=== PATIENT | female | born 1935 | race Caucasian/White ===

== ENCOUNTER 2019-06-29 10:39 | Emergency (ER) | payer OTHER, MEDICAID ==
[~2019-06-29] VITALS: Ht 157.5 cm; Wt 54.4 kg
--- NOTE | 2019-06-29 10:44 | NUR ---
BIB [facility]. PATIENT IS AWAKE AND ALERT. DENIES PAIN, FEVER, COUGHING OR ANY OTHER S/S. SHE IS AMBULATORY WITH MINIMAL ASSISTANCE. PATIENT STATES SHE DOES NOT KNOW WHY EMS WAS CALLLED TODAY....
[2019-06-29] MEDS ORDERED: ALBU2.5V13 NEB (10:55)
[2019-06-29] MEDS: IV NORMAL SALINE 500 ML BAG IV ONE (11:06)
[2019-06-29 11:24] LABS: BASOPHILS # (AUTO) 0.1 K/uL (0.0-8.0); BASOPHILS % (AUTO) 0.7 % (0.0-2.0); EOSINOPHILS # (AUTO) 0.1 K/uL (0.0-0.7); EOSINOPHILS % (AUTO) 0.8 % (0.0-7.0); HEMATOCRIT 38.8 % (31.2-41.9); HEMOGLOBIN 12.8 g/dL (10.9-14.3); LYMPHOCYTES # (AUTO) 1.4 K/uL (20.0-40.0); MEAN CORPUSCULAR HGB CONC 33 g/dL (32.3-35.6); MEAN CORPUSCULAR VOLUME 90.7 fL (75.5-95.3); MONOCYTES # (AUTO) 0.6 K/uL (2.0-10.0); MONOCYTES % (AUTO) 6.6 % (0.0-11.0); NEUTROPHILS # (AUTO) 7.1 K/uL (1.8-8.9); NEUTROPHILS % (AUTO) 76.9 % (38.5-71.5); PLATELET COUNT (AUTO) 239 K/uL (179-408); RED BLOOD CELL COUNT(AUTO) 4.28 MIL/uL (3.63-4.92); WHITE BLOOD COUNT (AUTO) 9.3 K/uL (3.8-11.8)
[2019-06-29 11:35] LABS: CARBON DIOXIDE 26 mmol/L (21-32); CHLORIDE 104 mmol/L (98-107); CREATININE 0.9 mg/dL (0.6-1.3); GLUCOSE 162 mg/dL (74-106); POTASSIUM 4.4 mmol/L (3.5-5.1); UREA NITROGEN, BLOOD 24 mg/dL (7-18)
[2019-06-29 11:36] LABS: ETHANOL < 3 MG/DL (0-0)
--- NOTE | 2019-06-29 11:47 | NUR ---
AWAITING TEST RESULTS. PATIENT IS AWAKE AND ALERT WITH NO NEW COMPLAINTS. NO VISITORS FOR THIS PATIENT THUS FAR...
[2019-06-29 11:48] LABS: THYROID STIMULATING HORMONE 0.925 mIU/mL (0.358-3.740)
[2019-06-29 11:52] LABS: ACETAMINOPHEN < 2.0 ug/mL (10-30); ALANINE AMINOTRANSFERASE 16 U/L (14-59); ALKALINE PHOSPHATASE 53 U/L (50-136); ASPARTATE AMINOTRANSFERASE 21 U/L (15-37); BILIRUBIN,DIRECT 0.1 mg/dL (0.0-0.2); BILIRUBIN,TOTAL 0.6 mg/dL (0.2-1.0); TOTAL PROTEIN, SERUM 7.6 g/dL (6.4-8.2)
[2019-06-29 12:54] LABS: *BILIRUBIN,URIN NEGATIVE (NEGATIVE); *BLOOD, URINE NEGATIVE (NEGATIVE); *CLARITY,URINE CLEAR (CLEAR); *COLOR,URINE YELLOW (YELLOW); *KETONES,URINE NEGATIVE (NEGATIVE); LEUKOCYTE ESTERASE ,URINE 1+ (NEGATIVE); NITRITE, URINE NEGATIVE (NEGATIVE); UGLUCOSE NEGATIVE (NEGATIVE)
--- NOTE | 2019-06-29 12:57 | NUR ---
PATIENT INFORMED OF PENDING TRANSFER TO [facility]. REPORT GIVEN TO KACI BECKFORD AT [place].
[2019-06-29 13:00] LABS: SQUAMOUS EPITHELIAL CELL,UR FEW /HPF (NONE SEEN)
[2019-06-29 13:01] LABS: BACTERIA,URINE FEW /HPF (NONE SEEN); RBC,URINE 0-3 /HPF (0-3)
[2019-06-29 13:16] LABS: *AMPHETAMINE, URINE NEGATIVE (NEGATIVE); *BARBITURATE, URINE NEGATIVE (NEGATIVE); *CANNABINOID, URINE NEGATIVE (NEGATIVE); *COCCAINE, URINE NEGATIVE (NEGATIVE); *OPIATE, URINE NEGATIVE (NEGATIVE); *PHENCYCLIDINE SCREEN,URINE NEGATIVE (NEGATIVE)
--- NOTE | 2019-06-29 13:26 | NUR ---
AMBULANCE HERE TO TRANSPORT PATIENT TO [facility]. PATIENT IS AWAKE AND ALERT...
== END 2019-06-29 13:28 | disposition short-term general hospital (02) ==
LOC: ER 10:39
DX: R41.82 Altered mental status, unspecified (principal); E86.0 Dehydration; J45.909 Unspecified asthma, uncomplicated; Z79.899 Other long term (current) drug therapy
CPT/HCPCS: 36415; 70450; 71045; 80048; 80076; 80307; 81000; 81001; 82140; 83605; 84443; 84484; 85025; 85730; 87040; 87086; 87400; 93005; 96360; 96361; 99285; G0480 ×2; G0481; 70030-TC; A4663; J7040

== ENCOUNTER 2020-07-28 11:59 | Emergency (ER) | payer OTHER, MEDICAID ==
[~2020-07-28] VITALS: Ht 157.5 cm; Wt 47.6 kg
[~2020-07-28 11:59] MED LIST: ALBU2.5V13 NEB
[2020-07-28] MEDS ORDERED: HYDROMORPHONE 1 MG/1 ML DISP.SYRIN IV ONE (14:00)
[2020-07-28] MEDS ORDERED: HYDROMORPHONE 1 MG/1 ML DISP.SYRIN ONE ×2 (14:40→14:55)
[2020-07-28] MEDS ORDERED: HYDROMORPHONE 1 MG/1 ML DISP.SYRIN IM ONE (14:45)
--- NOTE | 2020-07-28 16:24 | NUR ---
inserted inman catheter using aseptic technique, secured catheter to left leg.
[2020-07-28] MEDS ORDERED: CEFTRIAXONE 1 G in IV DEXTROSE 5% 50 ML IV ONE (16:30)
[2020-07-28] MEDS ORDERED: AZITHROMYCIN IV 500 MG in IV DEXTROSE 5% 250 ML IV ONE (16:30)
[2020-07-28 17:09] LABS: *BILIRUBIN,URIN NEGATIVE (NEGATIVE); *CLARITY,URINE CLOUDY (CLEAR); *COLOR,URINE YELLOW (YELLOW); *KETONES,URINE NEGATIVE (NEGATIVE); *UROBILINOGEN,URINE 0.2 E.U./dl (NORMAL); LEUKOCYTE ESTERASE ,URINE 1+ (NEGATIVE); NITRITE, URINE POSITIVE (NEGATIVE); PH,URINE 5.5 (5.0-8.0); UGLUCOSE NEGATIVE (NEGATIVE)
[2020-07-28 17:18] LABS: BILIRUBIN,DIRECT 0.2 mg/dL (0.0-0.2); BILIRUBIN,TOTAL 0.4 mg/dL (0.2-1.0); CREATININE 0.9 mg/dL (0.6-1.3); POTASSIUM 5.4 mmol/L (3.5-5.1); TOTAL PROTEIN, SERUM 7.5 g/dL (6.4-8.2)
[2020-07-28 17:23] LABS: *BLOOD, URINE TRACE (NEGATIVE)
[2020-07-28 17:29] LABS: BASOPHILS # (AUTO) 0.1 K/uL (0.0-8.0); BASOPHILS % (AUTO) 0.3 % (0.0-2.0); HEMATOCRIT 32.9 % (31.2-41.9); HEMOGLOBIN 10.9 g/dL (10.9-14.3); LYMPHOCYTES # (AUTO) 0.8 K/uL (20.0-40.0); LYMPHOCYTES % (AUTO) 3.1 % (20.5-51.5); MEAN CORPUSCULAR HEMOGLOBIN 27.9 uug (24.7-32.8); MEAN CORPUSCULAR HGB CONC 33 g/dL (32.3-35.6); MEAN CORPUSCULAR VOLUME 84.1 fL (75.5-95.3); MONOCYTES # (AUTO) 1.1 K/uL (2.0-10.0); NEUTROPHILS % (AUTO) 92.6 % (38.5-71.5); PLATELET COUNT (AUTO) 461 K/uL (179-408); RED BLOOD CELL COUNT(AUTO) 3.92 MIL/uL (3.63-4.92)
--- NOTE | 2020-07-28 17:30 | NUR ---
Pt is extremely hard IV stick/blood draw -- 3 RN's 6 attempts. MD attempted U/S guided IV placement w/o success, ended up placing 20g right EJ, patent but does not allow drawing.
[2020-07-28 17:47] LABS: MAGNESIUM 2.4 mg/dL (1.8-2.4); PHOSPHOROUS 3.7 mg/dL (2.5-4.9); THYROID STIMULATING HORMONE 2.475 mIU/mL (0.358-3.740)
[2020-07-28] MEDS ORDERED: CEFTRIAXONE /D5W 50ML IVPB **ER PYXIS IV ONE (17:53)
[2020-07-28] MEDS ORDERED: IV NS 1000 ML 1,000 ML IV ONE (18:00)
--- NOTE | 2020-07-28 18:15 | NUR ---
Placed pt on O2 via NC at 2 lpm. SPO2 improved to 99%.
--- NOTE | 2020-07-28 19:00 | NUR ---
Unable to draw repeat coags. aware.
--- NOTE | 2020-07-28 19:18 | NUR ---
Received report from Fabio Taylor RN for continuity of care.
[2020-07-28] MEDS ORDERED: AZITHROMYCIN 500MG/ D5W 250ML IVPB **ER PYXIS ONLY IV ONE (19:43)
--- NOTE | 2020-07-28 20:38 | NUR ---
Patient in bed laying supine on bed, bed in lowest position, sr upx2, call light within reach. IVF infusing and lines are patent. Will continue to monitor.
[2020-07-28 21:24] LABS: BACTERIA,URINE MODERATE /HPF (NONE SEEN); SQUAMOUS EPITHELIAL CELL,UR FEW /HPF (NONE SEEN); WBC,URINE TNTC /HPF (0-3)
--- NOTE | 2020-07-28 21:45 | NUR ---
Received transfer info from [facility]. Patient accepted at [facility]. [facility] transport ETA pickup at 2315. Accepting MD is Dr. Suzanne Ryan. Patient going to Room 2 East Bed 5 (PACU) Tele Overflow. Phone# for report is [phone].
--- NOTE | 2020-07-28 22:21 | NUR ---
Report given to KACI Rivero
--- NOTE | 2020-07-29 00:09 | NUR ---
[facility] #[id number] here for patient transport to [facility] under Dr. Ryan.
== END 2020-07-29 00:11 | disposition short-term general hospital (02) ==
LOC: ER 11:59
DX: S72.141A Displaced intertrochanteric fracture of right femur, initial encounter for closed fracture (principal); W01.0XXA Fall on same level from slipping, tripping and stumbling without subsequent striking against object, initial encounter; Y92.039 Unspecified place in apartment as the place of occurrence of the external cause; N39.0 Urinary tract infection, site not specified; E87.5 Hyperkalemia; J18.9 Pneumonia, unspecified organism; R41.82 Altered mental status, unspecified; D64.9 Anemia, unspecified; D72.829 Elevated white blood cell count, unspecified; J44.0 Chronic obstructive pulmonary disease with (acute) lower respiratory infection; R32 Unspecified urinary incontinence; F03.90 Unspecified dementia, unspecified severity, without behavioral disturbance, psychotic disturbance, mood disturbance, and anxiety; I48.91 Unspecified atrial fibrillation; Z20.822 Contact with and (suspected) exposure to COVID-19
CPT/HCPCS: 36415; 51702; 70450; 71045; 72125; 72170; 73521; 73564 ×3; 80048; 80076; 81001; 83605; 83735; 84100; 84443; 84484; 85025; 85730; 87040 ×2; 87077; 87186; 87426; 93005; 93925; 96365 ×2; 96375; 99291; J0456; J0696; J1170 ×2; 70030-TC; 87086; A4663